=== PATIENT | female | born 1950 | race American Indian/Alaskan Native ===

== ENCOUNTER 2017-02-01 15:17 | Emergency (ER) | payer MEDICARE, OTHER ==
[~2017-02-01] VITALS: Ht 149.9 cm; Wt 56.7 kg
[2017-02-01 15:19] VITALS: BP 103/64
== END 2017-02-01 17:05 | disposition home or self-care (01) ==
LOC: ED 17:01
DX: S93.491A Sprain of other ligament of right ankle, initial encounter (principal); F17.210 Nicotine dependence, cigarettes, uncomplicated; W01.0XXA Fall on same level from slipping, tripping and stumbling without subsequent striking against object, initial encounter; Y93.89 Activity, other specified; Y92.89 Other specified places as the place of occurrence of the external cause; Y99.9 Unspecified external cause status
CPT/HCPCS: 99284

== ENCOUNTER 2020-01-06 22:38 | Emergency (ER) | payer MEDICARE, MEDICAID ==
[~2020-01-06] VITALS: Ht 149.9 cm; Wt 56.0 kg
--- NOTE | 2020-01-06 22:47 | NUR ---
PT AMBULATORY TO ROOM, STEADY GAIT. NO SIGNS OF DISTRESS.
[2020-01-06] MEDS ORDERED: IBUPROFEN 600 MG TABLET PO ONE (23:00)
--- NOTE | 2020-01-06 23:01 | NUR ---
PT STATES ERP HAD BEEN ON SCENE AND SHE DID NOT WISH TO FILE A REPORT. ERP HAS BEEN TO BEDSIDE. PT SITTING IN BED, RESPIRATIONS EVEN AND UNLABORED.
[2020-01-06 23:02] VITALS: BP 111/64
[2020-01-06] MEDS ORDERED: IBUPROFEN 600 MG TABLET ONE (23:06)
--- NOTE | 2020-01-06 23:08 | NUR ---
PT TO IMAGING.
== END 2020-01-07 00:39 | disposition home or self-care (01) ==
LOC: ED 01-07
DX: S43.421A Sprain of right rotator cuff capsule, initial encounter (principal); X50.0XXA Overexertion from strenuous movement or load, initial encounter; Y93.89 Activity, other specified; Y92.89 Other specified places as the place of occurrence of the external cause; Y99.8 Other external cause status
CPT/HCPCS: 99284